=== PATIENT | male | born 2000 ===

== ENCOUNTER 2024-04-01 16:34 | Emergency (ER) | payer SELFPAY ==
[~2024-04-01] VITALS: Ht 172.7 cm; Wt 79.5 kg
[2024-04-01 16:46] VITALS: BP 121/72; PULSE 83; RESP 14; TEMP 98.5; O2SAT 98
== END 2024-04-01 18:24 | disposition left against medical advice (07) ==
LOC: EMS 16:34
DX: R53.1 Weakness (principal); Z53.21 Procedure and treatment not carried out due to patient leaving prior to being seen by health care provider